=== PATIENT | male | born 1975 | race Caucasian/White ===

== ENCOUNTER → 2017-09-28 | Outpatient (CLI) | payer OTHER ==
--- NOTE | 2017-09-28 13:20 | RADIOLOGY REPORT (SQ) ---
EXAM DESCRIPTION: U/S SCROTUM W/DOPPLER COMPLETED DATE/TIME: 09/28/2017 9:51 am REASON FOR STUDY: INFERTILITY Z31.69 ENCOUNTER FOR OT GENERAL CNSL AND ADVICE ON PROCREAT COMPARISON: None. TECHNIQUE: Static and realtime marley scale imaging of the scrotum and testes. Selected color Doppler and spectral images recorded to document blood flow. LIMITATIONS: None. FINDINGS: RIGHT: TESTICLE: Normal size, 3.7 x 3.5 x 2.2 cm in size. Normal echotexture. Normal blood flow. No mass. EPIDIDYMIS: Normal. HYDROCELE OR VARICOCELE: No. HERNIA OR EXTRA-TESTICULAR MASS: No. OTHER: No other significant finding. LEFT: TESTICLE: Normal size, 3.5 x 3 x 2.1 cm in size. Normal echotexture. Normal blood flow. No mass. EPIDIDYMIS: Normal size, 3 mm epididymal cyst is present. HYDROCELE OR VARICOCELE: No. HERNIA OR EXTRA-TESTICULAR MASS: No. OTHER: No other significant finding. IMPRESSION: NORMAL SCROTAL ULTRASOUND. NO EVIDENCE OF TESTICULAR MASS OR TORSION. TECHNICAL DOCUMENTATION: JOB ID: [id number]- All Rights Reserved Reading location - IP/workstation name: [facility]
== END ==
LOC: RAD 09:10
PROVIDERS: ATTEND Urology
DX: N46.9 Male infertility, unspecified (principal)
CPT/HCPCS: 76870; 93976